=== PATIENT | female | born 1935 | race Caucasian/White ===

== ENCOUNTER 2018-09-09 16:32 | Emergency (ER) | payer MEDICARE ==
[~2018-09-09] VITALS: Ht 157.5 cm; Wt 79.8 kg
[2018-09-09 16:35] VITALS: Ht 157.5 cm; Wt 79.8 kg
[2018-09-09 17:01] LABS: BASOPHIL % 0.6 % (0-2); PLATELET COUNT 352 x10^3mcL (130-400); RED CELL DISTRIBUTION WIDTH 13.9 % (11.5-14.5)
[2018-09-09 17:16] LABS: CALCIUM 9.2 mg/dL (8.5-10.1); CARBON DIOXIDE 19.8 mmol/L (21-32); CHLORIDE SERUM 103 mmol/L (98-107); GLUCOSE SERUM 211 mg/dL (74-106); POTASSIUM SERUM 4.4 mmol/L (3.5-5.1); SODIUM SERUM 140 mmol/L (136-145)
[2018-09-09 17:21] LABS: ALBUMIN 3.4 g/dL (3.4-5.0); ALKALINE PHOSPHATASE 91 U/L (46-116); ALT/SGPT 17 U/L (14-59); AST/SGOT 21 U/L (15-37); BILIRUBIN TOTAL 0.2 mg/dL (0.20-1.00); TOTAL PROTEIN, SERUM 7.6 g/dL (6.4-8.2)
[2018-09-09] MEDS ORDERED: LEVOTHYROXIN0.025 M2 (18:38)
[2018-09-09] MEDS ORDERED: ZOLOFT25 MG (18:38)
[2018-09-09] MEDS ORDERED: GABAPENTIN100 M2 (18:38)
[2018-09-09] MEDS ORDERED: PROTONIX20 MG (18:38)
[2018-09-09] MEDS ORDERED: ALBUTEROL0.63 MG/3 (18:38)
[2018-09-09 18:40] LABS: UA SPECIFIC GRAVITY 1.015 (1.005-1.035); microscopic required? YES; urine erythrocyte NEGATIVE (NEGATIVE)
[2018-09-09 22:41] VITALS: BP 110/92
== END 2018-09-09 22:41 | disposition short-term general hospital (02) ==
LOC: ED 16:32
PROVIDERS: Emergency Medicine
DX: A41.9 Sepsis, unspecified organism (principal); N39.0 Urinary tract infection, site not specified; J44.1 Chronic obstructive pulmonary disease with (acute) exacerbation
CPT/HCPCS: 36600; 83880; 87804; J0456; J0696; J1885; J2930; J7030; J7050; J7613; J7644; Q0092

== ENCOUNTER 2019-05-11 22:57 | Emergency (ER) | payer MEDICARE ==
[~2019-05-11] VITALS: Ht 162.6 cm; Wt 83.9 kg
[2019-05-11 22:57] VITALS: Ht 162.6 cm; Wt 83.9 kg
[~2019-05-11 22:57] MED LIST: ALBUTEROL0.63 MG/3; GABAPENTIN100 M2; LEVOTHYROXIN0.025 M2; PROTONIX20 MG; ZOLOFT25 MG
[2019-05-11 23:33] LABS: BASOPHIL % 0.8 % (0-2); PLATELET COUNT 277 x10^3mcL (130-400)
[2019-05-11 23:34] LABS: RED CELL DISTRIBUTION WIDTH 18.9 % (11.5-14.5)
[2019-05-11 23:38] LABS: CALCIUM 8.7 mg/dL (8.5-10.1); CARBON DIOXIDE 22.4 mmol/L (21-32); CHLORIDE SERUM 108 mmol/L (98-107); CREATININE SERUM 0.8 mg/dL (0.6-1.0); GLUCOSE SERUM 213 mg/dL (74-106); MAGNESIUM 2.1 mg/dL (1.8-2.4); POTASSIUM SERUM 3.7 mmol/L (3.5-5.1); SODIUM SERUM 144 mmol/L (136-145)
[2019-05-12 10:26] VITALS: BP 125/57
== END 2019-05-12 11:37 | disposition short-term general hospital (02) ==
LOC: ED 22:57
PROVIDERS: Emergency Medicine
DX: R06.03 Acute respiratory distress (principal); R55 Syncope and collapse; Z88.1 Allergy status to other antibiotic agents
CPT/HCPCS: 36600; 83880; J2930; J7030; J7613; Q0092